=== PATIENT | male | born 1980 | race Two or more races ===

== ENCOUNTER 2021-04-09 21:34 | Emergency (ER) | payer OTHER ==
[~2021-04-09] VITALS: Ht 167.6 cm; Wt 100.9 kg
[2021-04-09 22:27] VITALS: BP 142/70
--- NOTE | 2021-04-09 22:39 | PHYS DOC ---
Past History Additional Past Medical Histor: SLEEP APNEA, BULGING DISCS Past Surgical History: Other Additional Past Surgical Histo: BX KNEE SX Adult General Chief Complaint Chief Complaint: ANKLE PROBLEM HPI HPI Patient is an otherwise healthy 40-year-old male who presents with right ankle and foot pain after tripping and falling at work, 6 out of 10, sharp in nature with no radiation. States he is able to walk on it. States it happened at work and then started aching when he got home. States he did take some Tylenol earlier. Review of Systems Review of Systems Review of systems otherwise unremarkable except noted in HPI Allergies Allergies Allergies Coded Allergies Type Severity Reaction Last Updated Verified No Known Drug Allergies 04/09/21 No Physical Exam Physical Exam Constitutional: Well developed, well nourished, no acute distress, non-toxic appearance. [] HENT: Normocephalic, atraumatic, bilateral external ears normal, oropharynx moist, no oral exudates, nose normal. [] Eyes: conjunctiva normal, no discharge. [] Neck: Normal range of motion, no tenderness, supple, no stridor. [] Extremities: No tenderness, no obvious bruising or deformity, ROM intact, no edema neurovascular exam intact. [] Neurologic: Alert and oriented X 3, no focal deficits noted. [] Psychologic: Affect normal, judgement normal, mood normal. [] Current Patient Data Vital Signs Vital Signs Date Time Temp Pulse Resp B/P (MAP) Pulse Ox O2 Delivery O2 Flow Rate FiO2 04/09/21 22:27 98.6 74 18 142/70 (94) 97 Room Air EKG EKG [] Radiology/Procedures Radiology/Procedures [] Heart Score C/O Chest Pain: No Risk Factors: Risk Factors: DM, Current or recent (<one month) smoker, HTN, HLP, family history of CAD, obesity. Risk Scores: Risk Factors: DM, Current or recent (<one month) smoker, HTN, HLP, family history of CAD, obesity. Course & Med Decision Making Course & Med Decision Making Patient is a 40-year-old male who presents with right ankle pain Vital signs not concerning. Physical exam noted above. Denied need for ice or pain medicine Imaging with no obvious acute osseous abnormalities. Discussed all findings with patient. Discussed symptom management at home. Advised to follow-up with primary care as needed. Gave return precautions to the ED. Patient grateful, verbalized understanding and agreed with plan of discharge. Dragon Disclaimer Dragon Disclaimer This electronic medical record was generated, in whole or in part, using a voice recognition dictation system. Departure Departure: Impression: Primary Impression: Ankle sprain Disposition: HOME / SELF CARE / HOMELESS Condition: GOOD Referrals: PCP,UNKNOWN (PCP) OSWALDO TIERNEY MD Patient Instructions: Ankle Sprain, RICE - Routine Care for Injuries Additional Instructions: Thank you for coming into the emergency department tonight and allowing us to take care of you. Please read the attached information carefully to go over the things we discussed. Please continue a Tylenol, ibuprofen and ice regimen. Please follow-up with your primary care physician to discuss ED visit. Please come back with new or concerning symptoms as discussed. MANFRED MELENDEZ MD Apr 09, 2021 22:39
--- NOTE | 2021-04-09 23:39 | RAD ---
Exam: 3 nonweightbearing views of the right ankle and 3 nonweightbearing views of the right foot Indication: Reason: INJURY / Spl. Instructions: / History: . Comparison: Unavailable. Findings: Right ankle: No acute fracture. The ankle mortise is congruent. No significant soft tissue swelling o r sizable joint effusion. Right foot: No acute fracture. Joint spaces are preserved. Normal alignment is maintained. There appe ars to be mild soft tissue swelling along the medial aspect of the midfoot, no radiopaque soft tissue foreign bodies. Impression: No acute osseous injury of the right ankle or foot. Electronically signed by: Fransisco Cobb DO (04/09/2021 11:36 PM) [facility]
== END 2021-04-09 23:19 | disposition home or self-care (01) ==
LOC: ER 21:34
DX: S93.401A Sprain of unspecified ligament of right ankle, initial encounter (principal); W01.198A Fall on same level from slipping, tripping and stumbling with subsequent striking against other object, initial encounter; Y93.89 Activity, other specified; Y92.89 Other specified places as the place of occurrence of the external cause; Y99.8 Other external cause status
CPT/HCPCS: 73610; 73630; 99284